=== PATIENT | female | born 1985 | race American Indian/Alaskan Native ===

== ENCOUNTER 2017-06-14 05:40 | Day surgery (SDC) | payer OTHER ==
[~2017-06-14] VITALS: Ht 162.6 cm; Wt 100.7 kg
[~2017-06-14 05:40] MED LIST: PRENATABS RX T1 EACH BUCCAL
--- NOTE | 2017-06-14 07:46 | NUR ---
PT WATCHING TV WITH NO C/O'S. OXYGEN SATS 100% ON RA.
--- NOTE | 2017-06-14 09:12 | NUR ---
06/14/17911 IeshaRubio gallegos SAT 100, O2 DECREASED TO 6L.
--- NOTE | 2017-06-14 10:26 | NUR ---
PT SITTING UP EATING POPSICLE. BOYFRIEND AT BEDSIDE.
[2017-06-14] MEDS ORDERED: NORCO 5-325 TA1 EACH PO (10:30)
--- NOTE | 2017-06-14 11:53 | NUR ---
PT SITTING UP IN BED EATING SOUP AND SANDWICH. ICE REFILLED AND PLACED ON ABD.
--- NOTE | 2017-06-14 15:53 | NUR ---
PT RESTING IN BED WITH SIGNIFICANT OTHER HEATHER BY HER SIDE. GOOD VISIT, SEEMED TO BE INFORMED AND PREPARED FOR SURGERY. PT REQUESTED PRAYER, WILL FOLLOW NEEDED
--- NOTE | 2017-06-15 06:52 | OR ---
[facility] [address], [place] [address] Signed DATE OF PROCEDURE: 06/14/17 PREOPERATIVE DIAGNOSIS: Incarcerated epigastric hernia (1 cm). POSTOPERATIVE DIAGNOSIS: Incarcerated epigastric hernia (1 cm). PROCEDURE Epigastric herniorrhaphy with intraabdominal Ventralex mesh (4.3 cm). ESTIMATED BLOOD LOSS: None. INDICATIONS Tamara is a 31-year-old obese female, who has been feeling pain and swelling just above the umbilicus. She said it was getting worse. She has lost weight since her baby was born and she said the lump was becoming more noticeable. She had been to her primary care provider. An ultrasound was ordered. There was a 1 cm fascial defect just above the umbilicus. Consequently, she was asked to see me as a general surgeon. I met with Tamara in the office and we both did our best to find this epigastric hernia. However, because of her body habitus, we had to trust her pain to localize it as well as the ultrasound. I gave her a pamphlet on hernias and we looked at that together. She understands the difference between the primary suture repair and a mesh repair. She also understands the expected intraop and postop course. There is risk to surgery including, but not limited to bleeding, infection, scarring, change in contour of the skin, damage to bowel, infection of the mesh requiring removal, recurrent hernias, and chronic pain. She had expressed understanding and wished to proceed. PROCEDURE NOTE I met with Tamara in our preop area. She was able to point to the area where she has the sensation of fullness and pain. It is just above the umbilicus. We went ahead and marked that area appropriately. Tamara was then taken into the operating room and placed in the supine position under general endotracheal tube anesthesia. She was given preoperative antibiotics along with subcutaneous heparin. SCDs were utilized. We utilized the standard midline supraumbilical vertical incision and we carried that down and around the tissue bluntly and with the cautery. We localized the small herniated, incarcerated lump of fat. That was amputated and we could easily see the 1 cm fascial defect. We cleared that off nicely and we could easily see inside the abdomen. We placed our 4.3 cm round Ventralex mesh into the abdominal cavity and brought it up, flushed against the posterior abdominal wall. The fascial defect was closed transversely with a running #1 Prolene suture. Several passes of the suture went through the tab on the mesh to help hold it in place. The tab was cut flush with the fascia and discarded. After this, local anesthetic was copiously injected in the abdominal wall and the subcutaneous tissues. The wound was irrigated and suctioned out until clear. The dermis was Electronically Signed By: CAROLIN BEJARANO MD 06/15/17 0652 PATIENT NAME: TAMARA ROBLES OPERATIVE REPORT DATE OF : 89 PHYSICIAN: CAROLIN BEJARANO MD REPORT #: [id number] REPORT IS CONFIDENTIAL AND NOT TO BE RELEASED WITHOUT AUTHORIZATION [address] [address] Signed reapproximated with interrupted 3-0 subcuticular Monocryl sutures. The skin edges were reapproximated with a running 6-0 fast absorbing plain gut suture. Dry gauze and tape were applied. Tamara was awakened from anesthesia, extubated in the OR, taken to recovery room in stable condition. MD JEANIE Prather/Modl /[id number] cc: MD Annalisa Garcia MD Electronically Signed By: CAROLIN BEJARANO MD 06/15/17 0652 PATIENT NAME: TAMARA ROBLES OPERATIVE REPORT DATE OF : 89 PHYSICIAN: CAROLIN BEJARANO MD REPORT #: [id number] REPORT IS CONFIDENTIAL AND NOT TO BE RELEASED WITHOUT AUTHORIZATION
== END 2017-06-14 12:15 | disposition home or self-care (01) ==
LOC: DS 05:40
PROVIDERS: Colon & Rectal Surgery
PROC: 0WUF0JZ Supplement Abdominal Wall with Synthetic Substitute, Open Approach (ICD-10-PCS; principal; 2017-06-14 06:45)
DX: K43.6 Other and unspecified ventral hernia with obstruction, without gangrene (principal); K21.9 Gastro-esophageal reflux disease without esophagitis; D64.9 Anemia, unspecified; Z90.89 Acquired absence of other organs; Z98.890 Other specified postprocedural states; Z87.891 Personal history of nicotine dependence
CPT/HCPCS: 00750; 90674; C1781; J0330; J0690; J1100; J1170; J1644; J1885; J2250; J2405; J2704; J2710; J2765; J3010; J7120

== ENCOUNTER 2017-11-11 22:16 | Emergency (ER) | payer OTHER ==
[~2017-11-11] VITALS: Ht 162.6 cm; Wt 100.7 kg
[~2017-11-11 22:16] MED LIST changes: +NORCO 5-325 TA1 EACH PO
[2017-11-12] MEDS ORDERED: PREVACID30 MG PO (01:30)
== END 2017-11-12 01:45 | disposition home or self-care (01) ==
LOC: ED 22:16
DX: K27.9 Peptic ulcer, site unspecified, unspecified as acute or chronic, without hemorrhage or perforation (principal)
CPT/HCPCS: 74177; 80053; 81001; 83690; 84703; 85025; 96361; 96374; 96375; 99284; J2270; J2405; J7030; Q9967